=== PATIENT | female | born 1975 | race African-American/Black ===

== ENCOUNTER 2023-11-24 20:06 | Emergency (ER) | payer MEDICARE, MEDICAID ==
[~2023-11-24] VITALS: Ht 167.6 cm; Wt 75.0 kg
[2023-11-24 20:30] VITALS: O2SAT 100
[2023-11-24] MEDS ORDERED: OXYC-662 MT (20:48)
[2023-11-24] MEDS: LIDOCAINE 5% PATCH TOP SCH (21:14)
[2023-11-24 21:16] VITALS: BP 109/64; PULSE 76; RESP 20; TEMP 37.39188; O2SAT 100
== END 2023-11-24 21:17 | disposition home or self-care (01) ==
LOC: ER 20:06
DX: M54.50 Low back pain, unspecified (principal); J45.909 Unspecified asthma, uncomplicated
CPT/HCPCS: 99283

== ENCOUNTER 2024-04-12 12:52 | Emergency (ER) | payer MEDICARE, MEDICAID ==
[~2024-04-12] VITALS: Ht 160 cm; Wt 80.2 kg
[~2024-04-12 12:52] MED LIST: OXYC-662 MT
[2024-04-12 12:55] VITALS: O2SAT 100
[2024-04-12 12:57] VITALS: TEMP 36.8; O2SAT 98
[2024-04-12] MEDS ORDERED: DEXAMETHASONE 1MG TABLET PO ONE (13:45)
[2024-04-12 14:16] VITALS: BP 124/75; PULSE 88; RESP 18
[2024-04-12] MEDS: DEXAMETHASONE 4MG TABLET PO NR (14:16)
[2024-04-12] MEDS: IBUPROFEN 600MG TABLET PO ONE (14:16)
== END 2024-04-12 14:17 | disposition home or self-care (01) ==
LOC: ER 12:52
DX: J02.9 Acute pharyngitis, unspecified (principal); J45.909 Unspecified asthma, uncomplicated
CPT/HCPCS: 99283; 87430; 87070; J8540